=== PATIENT | male | born 1955 | race Caucasian/White ===

== ENCOUNTER 2016-09-23 19:26 | Emergency (ER) | payer MEDICARE, OTHER ==
[2016-09-23 20:36] LABS: HEMOGLOBIN 12.1 gm/dl (14.0-17.5); RED BLOOD COUNT 3.66 M/UL (4.20-5.50); WHITE BLOOD COUNT 7.9 K/UL (4.5-11.0)
[2016-09-23 20:43] LABS: BUN/CREATININE RATIO 14 (0-10)
== END 2016-09-23 21:30 | disposition left against medical advice (07) ==
LOC: ER1 19:26
PROVIDERS: Physician Assistant
DX: R07.2 Precordial pain (principal); R06.02 Shortness of breath; R11.0 Nausea; I25.2 Old myocardial infarction; J44.9 Chronic obstructive pulmonary disease, unspecified; F17.210 Nicotine dependence, cigarettes, uncomplicated; Z88.2 Allergy status to sulfonamides; Z88.5 Allergy status to narcotic agent; Z99.81 Dependence on supplemental oxygen; Z90.49 Acquired absence of other specified parts of digestive tract
CPT/HCPCS: 36415; 71010; 80053; 82550; 82553; 83874; 84484; 85025; 93005; 96361; 96374; 96375; 99285; C9113; J2405